=== PATIENT | male | born 1975 | race Hispanic/Latino ===

== ENCOUNTER → 2019-12-08 | Outpatient (CLI) | payer OTHER | END | disposition home or self-care (01) | LOC: RAH 10:00 → EEVIPCON 10:30 | PROVIDERS: ATTEND Internal Medicine | DX: R91.1 Solitary pulmonary nodule (principal); R91.8 Other nonspecific abnormal finding of lung field; Z11.1 Encounter for screening for respiratory tuberculosis | CPT/HCPCS: 71250 ==